=== PATIENT | male | born 1970 | race Caucasian/White ===

== ENCOUNTER 2018-11-09 16:38 | Emergency (ER) | payer BC ==
[2018-11-09] MEDS: ONDANSETRON (ODT) 4 MG TAB ODT (19:03)
[2018-11-09] MEDS: KETOROLAC 30 MG INJ IM (19:04)
== END 2018-11-09 19:10 | disposition home or self-care (01) ==
LOC: FTE 16:38
DX: R11.10 Vomiting, unspecified (principal); R19.7 Diarrhea, unspecified
CPT/HCPCS: 96372; 99284-25